=== PATIENT | male | born 1945 | race Caucasian/White ===

== ENCOUNTER 2016-05-29 13:32 | Inpatient (IN) | payer MEDICARE ==
[~2016-05-29] VITALS: Ht 190.5 cm; Wt 115.5 kg
[2016-05-29 14:21] LABS: BASOPHILS # (AUTO) 0.05 K/uL (0.00-0.20); BASOPHILS % (AUTO) 0.6 % (0.0-2.0); EOSINOPHILS # (AUTO) 0.16 K/uL (0.00-0.70); EOSINOPHILS % (AUTO) 1.88 % (1.0-6.0); HEMATOCRIT 42.7 % (41-53); HEMOGLOBIN 14.1 g/dL (13.5-17.5); LYMPHOCYTES # (AUTO) 1.4 K/uL (1.0-4.8); LYMPHOCYTES % (AUTO) 15.8 % (22.0-44.0); MEAN CORPUSCULAR HEMOGLOBIN 29.8 pg (26.0-34.0); MEAN CORPUSCULAR HGB CONC 33.1 G/dL (31.0-37.0); MEAN CORPUSCULAR VOLUME 90 fL (80-100); MONOCYTES # (AUTO) 0.7 K/uL (0.1-1.0); MONOCYTES % (AUTO) 7.8 % (2.0-9.0); NEUTROPHILS # (AUTO) 6.4 K/uL (1.8-7.7); PLATELET COUNT (AUTO) 138 K/uL (150-450); RED BLOOD CELL COUNT(AUTO) 4.73 MIL/uL (4.50-5.90); RED CELL DISTRIBUTION WIDTH 13.9 % (11.5-14.5); WHITE BLOOD COUNT (AUTO) 8.7 K/uL (4.5-11.0)
[2016-05-29 14:26] LABS: RBC MORPHOLOGY COMMENT NORMAL RBC MORPH
[2016-05-29 14:29] LABS: ANION GAP 11 mmol/L (8-16); CALCIUM, TOTAL 8.8 mg/dL (8.8-10.5); CARBON DIOXIDE 24 mmol/L (22-29); CHLORIDE 103 mmol/L (98-107); CREATININE 1.04 mg/dL (0.60-1.30); GLOMERULAR FILTR. RATE CALC > 60 mL/min (>60); POTASSIUM 4.2 mmol/L (3.5-5.1); SODIUM SERUM 138 mmol/L (136-145); UREA NITROGEN, BLOOD 25 mg/dL (7-18)
[2016-05-29 14:35] LABS: ALANINE AMINOTRANSFERASE 45 U/L (12-78); ALBUMIN 3.6 g/dL (3.4-5.0); ASPARTATE AMINOTRANSFERASE 34 U/L (15-37); BILIRUBIN,TOTAL 0.4 mg/dL (0.1-1.0); TOTAL PROTEIN, SERUM 7.5 g/dL (6.4-8.2)
[2016-05-29] MEDS ORDERED: LISI-661 PO (14:39)
[2016-05-29] MEDS ORDERED: FURO40I PO (14:39)
[2016-05-29] MEDS ORDERED: SIMV5TAB6 PO (14:39)
[2016-05-29] MEDS ORDERED: METF500T4 PO (14:39)
[2016-05-29] MEDS ORDERED: ATEN25 PO (14:39)
[2016-05-29 15:01] LABS: GLUCOSE,POINT OF CARE 115 MG/DL (70-110)
[2016-05-29] MEDS ORDERED: LORazepam 2 MG TABLET PO ONE (17:00)
[2016-05-29] MEDS ORDERED: HALOPERIDOL 5 MG TABLET PO ONE (17:00)
[2016-05-29] MEDS ORDERED: DiphenhydrAMINE HCL 25 MG CAPSULE PO ONE (17:00)
[2016-05-29] MEDS ORDERED: HALOPERIDOL 5 MG TABLET PO PRN (17:30)
[2016-05-29 20:12] VITALS: BP 113/62
[2016-05-29] MEDS ORDERED: PNEUMOCOCCAL VACCINE POLYVALENT 0.5 ML VIAL [PPSV23] IM ONE (20:15)
[2016-05-29 20:37] LABS: GLUCOSE,POINT OF CARE 100 MG/DL (70-110)
[2016-05-29] MEDS ORDERED: CloNIDine HCL 0.1 MG TABLET PO PRN (21:15)
[2016-05-29] MEDS ORDERED: GLUCAGON,HUMAN RECOMBINANT 1 MG VIAL IM PRN (21:15)
[2016-05-30] MEDS: INSULIN ASPART 100 UNITS/ML SQ PRN ×2 (06:29→17:02)
[2016-05-30 06:32] LABS: GLUCOSE,POINT OF CARE 164 MG/DL (70-110)
[2016-05-30 08:27] VITALS: BP 115/61
[2016-05-30] MEDS ORDERED: ACETAMINOPHEN 325 MG TABLET PO PRN (10:15)
[2016-05-30] MEDS ORDERED: IBUPROFEN 400 MG TABLET PO PRN (10:15)
[2016-05-30] MEDS: FUROSEMIDE 20 MG TABLET PO SCH (10:25)
[2016-05-30 11:12] LABS: GLUCOSE,POINT OF CARE 123 MG/DL (70-110)
[2016-05-30 16:17] VITALS: BP 139/80
[2016-05-30] MEDS: BENZTROPINE MESYLATE 0.5 MG TABLET PO SCH (17:01)
[2016-05-30] MEDS: HALOPERIDOL 5 MG TABLET PO SCH (17:01)
[2016-05-30 17:41] LABS: GLUCOSE COMMENT 1 Received Meds; GLUCOSE,POINT OF CARE 155 MG/DL (70-110)
[2016-05-30] MEDS: SIMVASTATIN 10 MG TABLET PO SCH (20:54)
[2016-05-30] MEDS: LORazepam 2 MG TABLET PO PRN (20:54)
[2016-05-30 21:06] LABS: GLUCOSE,POINT OF CARE 102 MG/DL (70-110)
[2016-05-31 04:52] VITALS: BP 115/66
[2016-05-31 06:11] LABS: GLUCOSE,POINT OF CARE 135 MG/DL (70-110)
[2016-05-31 08:07] LABS: HEMOGLOBIN A1C 6.5 % (4.5-6.2)
[2016-05-31 08:27] VITALS: BP 130/62
[2016-05-31 08:31] LABS: THYROID STIMULATING HORMONE 2.39 uIU/mL (0.36-3.74)
[2016-05-31] MEDS: LISINOPRIL 20 MG TABLET PO SCH (09:06)
[2016-05-31] MEDS: BENZTROPINE MESYLATE 0.5 MG TABLET PO SCH ×2 (09:06→16:54)
[2016-05-31] MEDS: HALOPERIDOL 5 MG TABLET PO SCH ×2 (09:07→16:54)
[2016-05-31] MEDS: FUROSEMIDE 20 MG TABLET PO SCH (09:07)
[2016-05-31 11:26] LABS: GLUCOSE,POINT OF CARE 106 MG/DL (70-110)
[2016-05-31 16:00] VITALS: BP 129/69
[2016-05-31] MEDS: INSULIN ASPART 100 UNITS/ML SQ PRN (16:55)
[2016-05-31 17:22] LABS: GLUCOSE COMMENT 1 Received Meds; GLUCOSE,POINT OF CARE 160 MG/DL (70-110)
[2016-05-31] MEDS: SIMVASTATIN 10 MG TABLET PO SCH (21:05)
[2016-05-31 21:57] LABS: GLUCOSE,POINT OF CARE 140 MG/DL (70-110)
[2016-06-01 02:45] VITALS: BP 126/84
[2016-06-01 06:07] LABS: GLUCOSE,POINT OF CARE 157 MG/DL (70-110)
[2016-06-01] MEDS: INSULIN ASPART 100 UNITS/ML SQ PRN ×2 (06:15→16:54)
[2016-06-01] MEDS: LORazepam 2 MG TABLET PO PRN ×2 (08:05→20:46)
[2016-06-01] MEDS: HALOPERIDOL 5 MG TABLET PO SCH ×2 (08:07→16:54)
[2016-06-01] MEDS: LISINOPRIL 20 MG TABLET PO SCH (08:07)
[2016-06-01] MEDS: BENZTROPINE MESYLATE 0.5 MG TABLET PO SCH ×2 (08:07→16:54)
[2016-06-01] MEDS: FUROSEMIDE 20 MG TABLET PO SCH (08:07)
[2016-06-01 08:11] VITALS: BP 137/75
[2016-06-01 11:07] LABS: GLUCOSE,POINT OF CARE 133 MG/DL (70-110)
[2016-06-01] MEDS: MULTIVITAMINS WITH MINERALS, THERAPEUTIC TABLET PO SCH (14:21)
[2016-06-01 16:00] VITALS: BP 125/76
[2016-06-01 17:17] LABS: GLUCOSE COMMENT 1 Received Meds; GLUCOSE,POINT OF CARE 170 MG/DL (70-110)
[2016-06-01] MEDS: SIMVASTATIN 10 MG TABLET PO SCH (20:45)
[2016-06-01 21:17] LABS: GLUCOSE,POINT OF CARE 107 MG/DL (70-110)
[2016-06-02 05:15] VITALS: BP 118/64
[2016-06-02 06:12] LABS: GLUCOSE,POINT OF CARE 155 MG/DL (70-110)
[2016-06-02] MEDS: INSULIN ASPART 100 UNITS/ML SQ PRN ×3 (06:39→21:17)
[2016-06-02] MEDS: MULTIVITAMINS WITH MINERALS, THERAPEUTIC TABLET PO SCH (08:17)
[2016-06-02] MEDS: LISINOPRIL 20 MG TABLET PO SCH (08:17)
[2016-06-02] MEDS: LORazepam 2 MG TABLET PO PRN ×2 (08:17→16:41)
[2016-06-02] MEDS: FUROSEMIDE 20 MG TABLET PO SCH (08:17)
[2016-06-02] MEDS: BENZTROPINE MESYLATE 0.5 MG TABLET PO SCH ×2 (08:17→16:13)
[2016-06-02] MEDS: HALOPERIDOL 5 MG TABLET PO SCH ×2 (08:17→16:13)
[2016-06-02 08:56] VITALS: BP 119/72
[2016-06-02 11:07] LABS: GLUCOSE,POINT OF CARE 100 MG/DL (70-110)
[2016-06-02 16:00] VITALS: BP 110/73
[2016-06-02 16:32] LABS: GLUCOSE,POINT OF CARE 200 MG/DL (70-110)
[2016-06-02] MEDS: SIMVASTATIN 10 MG TABLET PO SCH (20:16)
[2016-06-02 21:17] LABS: GLUCOSE,POINT OF CARE 156 MG/DL (70-110)
[2016-06-03] MEDS: ZOLPIDEM TARTRATE 10 MG TABLET PO PRN (01:40)
[2016-06-03] MEDS: LORazepam 2 MG TABLET PO PRN ×2 (01:41→20:47)
[2016-06-03 06:26] LABS: GLUCOSE,POINT OF CARE 146 MG/DL (70-110)
[2016-06-03] MEDS: INSULIN ASPART 100 UNITS/ML SQ PRN ×2 (06:26→20:48)
[2016-06-03 07:27] VITALS: BP 135/61
[2016-06-03 08:52] VITALS: BP 102/74
[2016-06-03] MEDS: LISINOPRIL 20 MG TABLET PO SCH (09:00)
[2016-06-03] MEDS: FUROSEMIDE 20 MG TABLET PO SCH (09:00)
[2016-06-03] MEDS: BENZTROPINE MESYLATE 0.5 MG TABLET PO SCH ×2 (09:08→16:49)
[2016-06-03] MEDS: MULTIVITAMINS WITH MINERALS, THERAPEUTIC TABLET PO SCH (09:08)
[2016-06-03] MEDS: HALOPERIDOL 5 MG TABLET PO SCH ×2 (09:08→16:50)
[2016-06-03 11:56] LABS: GLUCOSE,POINT OF CARE 105 MG/DL (70-110)
[2016-06-03 16:00] VITALS: BP 126/73
[2016-06-03 17:22] LABS: GLUCOSE,POINT OF CARE 139 MG/DL (70-110)
[2016-06-03] MEDS: SIMVASTATIN 10 MG TABLET PO SCH (20:47)
[2016-06-03 21:16] LABS: GLUCOSE COMMENT 1 Received Meds; GLUCOSE,POINT OF CARE 178 MG/DL (70-110)
[2016-06-04 06:21] LABS: GLUCOSE,POINT OF CARE 134 MG/DL (70-110)
[2016-06-04 06:44] VITALS: BP 136/80
[2016-06-04] MEDS: BENZTROPINE MESYLATE 0.5 MG TABLET PO SCH ×2 (08:23→16:34)
[2016-06-04] MEDS: LORazepam 2 MG TABLET PO PRN ×2 (08:23→16:34)
[2016-06-04] MEDS: FUROSEMIDE 20 MG TABLET PO SCH (08:23)
[2016-06-04] MEDS: MULTIVITAMINS WITH MINERALS, THERAPEUTIC TABLET PO SCH (08:23)
[2016-06-04] MEDS: LISINOPRIL 20 MG TABLET PO SCH (08:23)
[2016-06-04] MEDS: HALOPERIDOL 5 MG TABLET PO SCH ×2 (08:29→16:34)
[2016-06-04 09:06] VITALS: BP 131/75
[2016-06-04 11:57] LABS: GLUCOSE,POINT OF CARE 130 MG/DL (70-110)
[2016-06-04 16:19] VITALS: BP 129/79
[2016-06-04] MEDS: INSULIN ASPART 100 UNITS/ML SQ PRN ×2 (16:36→20:51)
[2016-06-04 17:32] LABS: GLUCOSE,POINT OF CARE 206 MG/DL (70-110)
[2016-06-04 20:37] LABS: GLUCOSE COMMENT 1 Received Meds; GLUCOSE,POINT OF CARE 167 MG/DL (70-110)
[2016-06-04] MEDS: SIMVASTATIN 10 MG TABLET PO SCH (20:49)
[2016-06-04] MEDS: ZOLPIDEM TARTRATE 10 MG TABLET PO PRN (20:49)
[2016-06-05 04:09] VITALS: BP 113/68
[2016-06-05 06:23] LABS: GLUCOSE,POINT OF CARE 137 MG/DL (70-110)
[2016-06-05 08:00] VITALS: BP 142/96
[2016-06-05] MEDS: HALOPERIDOL 5 MG TABLET PO SCH ×2 (08:16→16:29)
[2016-06-05] MEDS: BENZTROPINE MESYLATE 0.5 MG TABLET PO SCH ×2 (08:16→16:29)
[2016-06-05] MEDS: MULTIVITAMINS WITH MINERALS, THERAPEUTIC TABLET PO SCH (08:16)
[2016-06-05] MEDS: LORazepam 2 MG TABLET PO PRN ×2 (08:16→16:29)
[2016-06-05] MEDS: FUROSEMIDE 20 MG TABLET PO SCH (08:16)
[2016-06-05] MEDS: LISINOPRIL 20 MG TABLET PO SCH (08:42)
[2016-06-05 12:07] LABS: GLUCOSE,POINT OF CARE 129 MG/DL (70-110)
[2016-06-05 16:00] VITALS: BP 122/85
[2016-06-05] MEDS: INSULIN ASPART 100 UNITS/ML SQ PRN (16:30)
[2016-06-05 17:12] LABS: GLUCOSE COMMENT 1 Received Meds; GLUCOSE,POINT OF CARE 199 MG/DL (70-110)
[2016-06-05] MEDS: SIMVASTATIN 10 MG TABLET PO SCH (20:23)
[2016-06-05] MEDS: ZOLPIDEM TARTRATE 10 MG TABLET PO PRN (20:23)
[2016-06-05 20:42] LABS: GLUCOSE,POINT OF CARE 138 MG/DL (70-110)
[2016-06-06 04:00] VITALS: BP 111/66
[2016-06-06 06:12] LABS: GLUCOSE,POINT OF CARE 146 MG/DL (70-110)
[2016-06-06] MEDS: INSULIN ASPART 100 UNITS/ML SQ PRN ×2 (06:13→17:31)
[2016-06-06 08:38] VITALS: BP 135/75
[2016-06-06] MEDS: LISINOPRIL 20 MG TABLET PO SCH (08:43)
[2016-06-06] MEDS: FUROSEMIDE 20 MG TABLET PO SCH (08:43)
[2016-06-06] MEDS: HALOPERIDOL 5 MG TABLET PO SCH ×2 (08:43→16:38)
[2016-06-06] MEDS: BENZTROPINE MESYLATE 0.5 MG TABLET PO SCH ×2 (08:43→16:38)
[2016-06-06] MEDS: MULTIVITAMINS WITH MINERALS, THERAPEUTIC TABLET PO SCH (08:43)
[2016-06-06 11:17] LABS: GLUCOSE,POINT OF CARE 129 MG/DL (70-110)
[2016-06-06] MEDS: LORazepam 2 MG TABLET PO PRN ×2 (12:35→20:09)
[2016-06-06 16:00] VITALS: BP 110/69
[2016-06-06 17:12] LABS: GLUCOSE,POINT OF CARE 217 MG/DL (70-110)
[2016-06-06] MEDS: SIMVASTATIN 10 MG TABLET PO SCH (20:09)
[2016-06-06 21:22] LABS: GLUCOSE,POINT OF CARE 132 MG/DL (70-110)
[2016-06-07 00:39] VITALS: BP 132/83
[2016-06-07 06:23] LABS: GLUCOSE,POINT OF CARE 131 MG/DL (70-110)
[2016-06-07 08:22] VITALS: BP 135/75
[2016-06-07] MEDS: MULTIVITAMINS WITH MINERALS, THERAPEUTIC TABLET PO SCH (08:24)
[2016-06-07] MEDS: LORazepam 2 MG TABLET PO PRN ×3 (08:25→22:16)
[2016-06-07] MEDS: FUROSEMIDE 20 MG TABLET PO SCH (08:26)
[2016-06-07] MEDS: LISINOPRIL 20 MG TABLET PO SCH (08:26)
[2016-06-07] MEDS: HALOPERIDOL 5 MG TABLET PO SCH ×2 (08:26→16:17)
[2016-06-07] MEDS: BENZTROPINE MESYLATE 0.5 MG TABLET PO SCH ×2 (08:26→16:17)
[2016-06-07 11:22] LABS: GLUCOSE,POINT OF CARE 99 MG/DL (70-110)
[2016-06-07 16:00] VITALS: BP 136/81
[2016-06-07 16:47] LABS: GLUCOSE,POINT OF CARE 174 MG/DL (70-110)
[2016-06-07] MEDS: INSULIN ASPART 100 UNITS/ML SQ PRN ×2 (16:55→21:28)
[2016-06-07] MEDS: SIMVASTATIN 10 MG TABLET PO SCH (20:19)
[2016-06-07] MEDS: ZOLPIDEM TARTRATE 10 MG TABLET PO PRN (20:19)
[2016-06-07 21:27] LABS: GLUCOSE,POINT OF CARE 143 MG/DL (70-110)
[2016-06-08 03:54] VITALS: BP 108/66
[2016-06-08 06:32] LABS: GLUCOSE,POINT OF CARE 119 MG/DL (70-110)
[2016-06-08] MEDS: LISINOPRIL 20 MG TABLET PO SCH (08:09)
[2016-06-08] MEDS: LORazepam 2 MG TABLET PO PRN (08:09)
[2016-06-08] MEDS: FUROSEMIDE 20 MG TABLET PO SCH (08:09)
[2016-06-08] MEDS: MULTIVITAMINS WITH MINERALS, THERAPEUTIC TABLET PO SCH (08:09)
[2016-06-08] MEDS: HALOPERIDOL 5 MG TABLET PO SCH (08:10)
[2016-06-08] MEDS: BENZTROPINE MESYLATE 0.5 MG TABLET PO SCH (08:10)
[2016-06-08 08:39] VITALS: BP 103/65
[2016-06-08] MEDS ORDERED: HALO5 PO (08:50)
[2016-06-08] MEDS ORDERED: SIMV10 PO (08:50)
[2016-06-08] MEDS ORDERED: BENZ0.5T6 PO (08:50)
[2016-06-08] MEDS ORDERED: LISI-662 PO (08:50)
[2016-06-08 13:37] LABS: GLUCOSE,POINT OF CARE 135 MG/DL (70-110)
[2016-06-08 13:37] LABS: GLUCOSE,POINT OF CARE 171 MG/DL (70-110)
== END 2016-06-08 12:00 | disposition home or self-care (01) | DRG 885 ==
LOC: EMS 13:36 → B3A 17:36
PROVIDERS: ADMIT Psychiatry & Neurology Psychiatry; ATTEND Psychiatry & Neurology Psychiatry
DX: F20.0 Paranoid schizophrenia (principal); R45.851 Suicidal ideations; I11.0 Hypertensive heart disease with heart failure; I50.9 Heart failure, unspecified; E78.5 Hyperlipidemia, unspecified; F12.90 Cannabis use, unspecified, uncomplicated; F17.200 Nicotine dependence, unspecified, uncomplicated; R45.87 Impulsiveness; E11.9 Type 2 diabetes mellitus without complications; Z59.0 Homelessness; Z91.5 Personal history of self-harm; Z82.49 Family history of ischemic heart disease and other diseases of the circulatory system; Z83.3 Family history of diabetes mellitus; Z79.899 Other long term (current) drug therapy; Z28.21 Immunization not carried out because of patient refusal
CPT/HCPCS: 82962; 83036; 84443; 99285; G0480